=== PATIENT | male | born 1960 ===

== ENCOUNTER → 2020-05-09 | Outpatient (CLI) | payer OTHER ==
--- NOTE | 2020-05-09 16:37 | REP ---
INDICATION: [facility] FX order states displaced fracture coronoid process right ulna, sequela.. COMPARISON: None. TECHNIQUE: Two views FINDINGS: Lateral view shows a somewhat elongated coronoid process of the ulna without evidence of a fracture line. This may be result of a healed fracture or an anatomic variation. The radial head and capitellum align normally on both views. There is no radial head fracture. I do not see any significant degenerative change about the elbow. The distal humerus has a small exostosis likely representing a small osteochondroma along the lateral aspect of the distal humeral diaphysis, well above the joint. There is some mild soft tissue swelling over the olecranon on the lateral view without evidence of avulsion of the triceps tendon nor any compelling evidence for elbow joint effusion. IMPRESSION: 1. No evidence of an acute fracture. A somewhat elongated coronoid process of the ulna may be the result of a prior healed coronoid process fracture or anatomic variation. I do not have any priors for comparison at this time. 2. Small exostosis distal diaphysis of the humerus laterally most likely a small osteochondroma. 3. Mild soft tissue swelling over the olecranon. No avulsion. No joint effusion. <Electronically signed by Maxwell Manley > 05/09/20 [id number]
--- NOTE | 2020-05-09 17:24 | REP ---
INDICATION: [facility]SP FX COMPARISON: None. TECHNIQUE: AP and lateral right wrist. FINDINGS: Thick linear lucency in the distal radial styloid could possibly represent an incompletely healed radial styloid fracture. Alternatively this could represent a small subcortical cyst. There is an adjacent small subcortical cyst just proximally. There is mild radiocarpal joint space narrowing and subchondral sclerosis. There is no other evidence of acute fracture or dislocation. IMPRESSION: Thick linear lucency in the distal radial styloid could possibly represent an incompletely healed radial styloid fracture. Alternatively this could represent a small subcortical cyst. There is an adjacent small subcortical cyst just proximally. There is mild radiocarpal joint space narrowing and subchondral sclerosis. <Electronically signed by Gene Disla > 05/09/20 [id number]
== END ==
LOC: M WUC 13:58
PROVIDERS: ATTEND Surgery
DX: M85.431 Solitary bone cyst, right ulna and radius (principal); R93.6 Abnormal findings on diagnostic imaging of limbs